=== PATIENT | female | born 1945 | race Two or more races ===

== ENCOUNTER 2017-03-21 22:04 | Emergency (ER) | payer MEDICAID, MEDICARE ==
[~2017-03-21] VITALS: Ht 165.1 cm; Wt 63.5 kg
[~2017-03-21 22:04] MED LIST: HYDR-2598; LEVO50TA7; METH2.5T3; NIAC500T58; PREDNISONE TAB 5MG
[2017-03-21 23:05] LABS: Basophils # (auto) 0.1 uL; Basophils % (auto) 1.3 % (0.0-2.0); Eosinophils # (auto) 0.1 uL; Eosinophils % (auto) 1.2 % (0.0-7.0); Hematocrit 41.1 % (36.0-46.0); Hemoglobin 13.6 g/dL (12.2-16.2); Lymphocytes % (auto) 22.1 % (10.0-50.0); Mean Corpuscular Hemoglobin 30.3 pg (28.0-32.0); Mean Corpuscular Volume 91.6 fL (80.0-100.0); Mean Platelet Volume 8.4 fL (6.9-10.8); Monocytes # (auto) 0.3 uL; Monocytes % (auto) 6.5 % (0.0-12.0); Neutrophils # (auto) 3.1 uL; Neutrophils % (auto) 68.9 % (37.0-80.0); Nucleated Red Blood Cells % 0.1 %; Platelet Count (auto) 160 10^3/uL (140-450); Red Cell Distribution Width 14.9 % (11.8-14.3); White Blood Cell 4.5 10^3/uL (4.4-10.8)
[2017-03-21 23:27] LABS: INR 0.98 (0.9-1.15); Partial Thromboplastin Time 26.6 sec (22.64-33.71); Prothrombin Time 10.7 sec (9.37-12.3)
[2017-03-21 23:29] LABS: Albumin 2.8 g/dL (3.4-5.0); Alkaline Phosphatase 209 U/L (45-117); Anion Gap 9 (5-15); Aspartate Aminotransferase 49 U/L (15-37); BUN/Creatinine Ratio 12.4; Bilirubin, Total 0.8 mg/dL (0.2-1.0); Blood Urea Nitrogen 11 mg/dL (7-18); Calcium 8.4 mg/dL (8.5-10.1); Carbon Dioxide 24 mmol/L (21-32); Chloride 106 mmol/L (98-107); GFR African American 80 mL/min; GFR Non-African American 66 mL/min; Glucose 125 mg/dL (74-106); Magnesium 2.2 mg/dL (1.6-2.6); Sodium 139 mmol/L (136-145); Total Protein 7.8 g/dL (6.4-8.2)
[2017-03-21 23:32] LABS: B-Type Natriuretic Peptide 46.22 pg/mL (0-100)
[2017-03-21 23:38] LABS: Temperature: 24.1 C (20.0-25.0)
[2017-03-22] MEDS ORDERED: IBUPROFEN 400 MG TAB PO ONE (00:45)
[2017-03-22] MEDS ORDERED: MECLIZINE HCL 25 MG TAB PO ONE (00:45)
[2017-03-22] MEDS ORDERED: SODIUM CHLORIDE 0.9% 1,000 ML IV ONE ×2 (02:15)
[2017-03-22 05:19] VITALS: BP 94/45
== END 2017-03-22 06:00 | disposition home or self-care (01) ==
LOC: EDBD 22:04 → ER 22:08
DX: T40.7X1A Poisoning by cannabis (derivatives), accidental (unintentional), initial encounter (principal); R41.82 Altered mental status, unspecified; G92 Toxic encephalopathy; M19.90 Unspecified osteoarthritis, unspecified site; Y92.89 Other specified places as the place of occurrence of the external cause
CPT/HCPCS: 36415; 71010; 80053; 83735; 83880; 84443; 84484; 85025; 85379; 85610; 85730; 93005; 96360; 96361; 99285; J7030; J8597

== ENCOUNTER 2018-09-22 19:09 | Inpatient (IN) | payer OTHER, MEDICAID ==
[~2018-09-22] VITALS: Ht 162.6 cm; Wt 100.1 kg
[2018-09-22] MEDS ORDERED: ONDANSETRON HCL 4 MG/2 ML VIAL IV ONE (20:45)
[2018-09-22] MEDS ORDERED: KETOROLAC TROMETH 30 MG/ML 1ML VIAL IV ONE (21:00)
[2018-09-22] MEDS ORDERED: ACETAMINOPHEN 325 MG TAB PO ONE (21:30)
[2018-09-22 21:38] LABS: Hemoglobin 10.5 g/dL (12.2-16.2); Mean Corpuscular Hemoglobin 32.8 pg (28.0-32.0); Mean Corpuscular Hgb Conc. 32.9 g/dL (32.0-36.0); Mean Corpuscular Volume 99.8 fL (80.0-100.0); Platelet Count (auto) 127 10^3/uL (140-450); Red Blood Cells 3.21 10^6/uL (4.0-5.20); Red Cell Distribution Width 19.3 % (11.8-14.3)
[2018-09-22 21:41] LABS: Potassium 3.9 mmol/L (3.5-5.1)
[2018-09-22 21:44] LABS: Band Neutrophils % (manual) 0; Basophils % (manual) 0 (0.0-2.0); Blast Cells 0; Metamyelocytes % 0; Myelocytes % 0; Promyelocytes % 0; Reactive Lymphocytes 0
[2018-09-22 21:50] LABS: Albumin 2.3 g/dL (3.4-5.0); Bilirubin, Total 6.8 mg/dL (0.2-1.0); Calcium 8.9 mg/dL (8.5-10.1); Total Protein 7.4 g/dL (6.4-8.2)
[2018-09-22 22:04] LABS: Amylase 74 U/L (25-115); Lipase 273 U/L (73-393)
[2018-09-22 23:02] LABS: Eosinophils % (manual) 1 (0-7); Lymphocytes % (manual) 6 (10.0-50.0); Monocytes % (manual) 7 (0-12)
[2018-09-22] MEDS ORDERED: SODIUM CHLORIDE 0.9% 1,000 ML IV ONE (23:30)
[2018-09-23] VITALS (47 sets, daily range): BP systolic 84–138; BP diastolic 31–93
[2018-09-23] MEDS ORDERED: LEVOFLOXACIN 750MG 150 ML IV ONE (00:15)
[2018-09-23] MEDS ORDERED: metroNIDAZOLE 500MG/100ML 100 ML IV ONE (00:15)
[2018-09-23] MEDS ORDERED: SODIUM CHLORIDE 0.9% 1,000 ML IV ONE (01:15)
[2018-09-23] MEDS: NOREPINEPHRINE 8 MG/250ML KIT 250 ML IV SCH (02:53)
[2018-09-23] MEDS ORDERED: ONDANSETRON HCL 4 MG/2 ML VIAL IV ONE (03:45)
[2018-09-23 04:38] LABS: Urine Bacteria FEW /hpf (None Seen); Urine Blood Negative /uL (Negative); Urine Hyaline Cast FEW /lpf (0 - 2); Urine Mucus FEW (None Seen); Urine Specific Gravity 1.012 (1.001-1.035); Urine WBC 2 /hpf (0 - 5)
[2018-09-23] MEDS ORDERED: ACETAMINOPHEN 500 MG TAB PO PRN (04:45)
[2018-09-23] MEDS ORDERED: ALBUMIN 25% 100 ML IV ONE ×3 (04:45→16:45)
[2018-09-23 04:51] LABS: Basophils # (auto) 0.1 uL; Basophils % (auto) 0.6 % (0.0-2.0); Eosinophils # (auto) 0.1 uL; Eosinophils % (auto) 0.9 % (0.0-7.0); Hematocrit 26.9 % (36.0-46.0); Hemoglobin 9.2 g/dL (12.2-16.2); Lymphocytes # (auto) 1.4 uL; Mean Corpuscular Hgb Conc. 34.1 g/dL (32.0-36.0); Mean Corpuscular Volume 99.6 fL (80.0-100.0); Monocytes # (auto) 1.4 uL; Monocytes % (auto) 13.6 % (0.0-12.0); Neutrophils # (auto) 7.6 uL; Neutrophils % (auto) 71.9 % (37.0-80.0); Platelet Count (auto) 116 10^3/uL (140-450); Red Cell Distribution Width 18.7 % (11.8-14.3); White Blood Cell 10.6 10^3/uL (4.4-10.8)
[2018-09-23 05:02] LABS: BUN/Creatinine Ratio 12.3; Calcium 7.9 mg/dL (8.5-10.1); Potassium 4.3 mmol/L (3.5-5.1)
[2018-09-23] MEDS: LEVOTHYROXINE SODIUM 50 MCG TAB PO SCH (07:04)
[2018-09-23] MEDS: ONDANSETRON HCL 4 MG/2 ML VIAL IV PRN ×2 (08:29→14:21)
--- NOTE | 2018-09-23 09:10 | NUR ---
Pt being admitted to ICU ANDERSONZACH JAMA admitted to ICU via gurney on athletic monitor, and portable 02. Patient transfered to bed, connected to ICU monitoring and oxygen, and weighed by bedscale. Patient oriented to Phil brandt RN, unit, room, bed, and unit policies regarding patient care and visiting hours. All questions and concerns addressed, patient verbalized understanding. NOTE: PATIENT AWAKE, A/OX4, DENIES ANY PAIN JUST "STOMACH PRESSURE". NO SIGNS/SYMPTOMS OF BLEEDING AT THIS TIME. CALL LIGHT IN REACH. LEVOPHED AT 10 MCG/MIN.
[2018-09-23] MEDS ORDERED: HEPARIN SODIUM (PORCINE) 5000 UNITS/ML 1ML VIAL IV ONE (09:45)
[2018-09-23 09:56] LABS: Basophils # (auto) 0.1 uL; Basophils % (auto) 0.5 % (0.0-2.0); Eosinophils # (auto) 0.1 uL; Hematocrit 27.6 % (36.0-46.0); Hemoglobin 9.1 g/dL (12.2-16.2); Lymphocytes # (auto) 1.5 uL; Lymphocytes % (auto) 14.8 % (10.0-50.0); Mean Corpuscular Hemoglobin 33.1 pg (28.0-32.0); Mean Corpuscular Volume 100.3 fL (80.0-100.0); Monocytes # (auto) 1.6 uL; Neutrophils # (auto) 7.1 uL; Neutrophils % (auto) 68.7 % (37.0-80.0); Nucleated Red Blood Cells % 0.2 %; Platelet Count (auto) 119 10^3/uL (140-450); Red Blood Cells 2.75 10^6/uL (4.0-5.20); Red Cell Distribution Width 18.7 % (11.8-14.3); White Blood Cell 10.3 10^3/uL (4.4-10.8)
[2018-09-23] MEDS ORDERED: predniSONE 5 MG TAB PO SCH (10:00)
[2018-09-23] MEDS ORDERED: FUROSEMIDE 20 MG/2 ML VIAL IV SCH ×2 (10:00→22:00)
--- NOTE | 2018-09-23 10:02 | NUR ---
PAGED DR CHONG, REGARDING VERIFICATION OF HEPARIN GTT AND ASA PO AND FOR POSSIBLE ORDER FOR ALBUMIN/POTASSIUM DUE TO LASIX AND PATIENT ON LEVOPHED.
[2018-09-23 10:03] LABS: INR 1.66 (0.9-1.15); Partial Thromboplastin Time 33.2 sec (23.78-33.04); Prothrombin Time 17.3 sec (9.27-12.13)
--- NOTE | 2018-09-23 11:22 | NUR ---
DR LAM CALLED BACK, OK TO START HEPARIN GTT/BOLUS AND OK FOR ASA.
[2018-09-23] MEDS: HEPARIN DRIP/D5W 100UNITS/ML 250 ML IV SCH (11:43)
[2018-09-23] MEDS: ASPirin 81 mg TAB PO SCH (11:43)
--- NOTE | 2018-09-23 11:56 | NUR ---
SPOKE WITH DR CHONG, VERIFIED 2000 UNIT HEPARIN BOLUS BECAUSE ORDER STATED TO GIVE 2000 UNITS AND ALSO GIVE PER PT WT PER RX PROTOCOL. DR ARMIJO RN VERIFIED HEPARIN WITH GI DRS. RN ASSESSED PATIENT FOR SIGNS OF ACTIVE BLEEDING AGAIN PRIOR TO ADMINISTERING HEPARIN BOLUS AND GTT. PATIENT TOLERATING WELL SO FAR. GI DR AT BEDSIDE PRIOR TO ADMINISTERING.
[2018-09-23] MEDS ORDERED: OCTREOTIDE ACETATE 100 MCG in SODIUM CHL 0.9% 50 ML IV ONE (14:00)
--- NOTE | 2018-09-23 14:29 | NUR ---
PAGED DR CHONG REGARDING NO OUTPUT FROM LASIX
--- NOTE | 2018-09-23 15:25 | NUR ---
SPOKE WITH DR CHONG, AWARE PATIENT NAUSEAS AND BEEN GETTING ZOFRAN Q4H WITH 50ML COFFEE GROUND EMESIS, AWARE OF INCREASING ABDOMINAL "PRESSURE", DR AWARE NO URINE OUTPUT SINCE LASIX GIVEN, DR AWARE LEVOPHED ON AT 10MCG/MIN SINCE DR STATED TO START VASOPRESSIN GTT AND GIVE 2MG IV BUMEX IF BP OK IN 2 HRS. RN RECOMMENDED ALBUMIN AND NO ORDER RECEIVED. DR STATED TO ASK DR CAVAZOS FOR ALBUMIN/IVF. DR CAVAZOS NOT IN YET TODAY, DR CAVAZOS PAGED.
[2018-09-23] MEDS: OCTREOTIDE ACETATE 500 MCG in SODIUM CHL 0.9% 99 ML IV SCH (15:26)
--- NOTE | 2018-09-23 15:57 | NUR ---
SPOKE WITH YOANA DILLONAR REPORT GIVEN TO , NO ORDER FOR ALBUMIN OBTAINED, NEW ORDER FOR PICC LINE AND NEPHROLOGY CONSULT.
[2018-09-23] MEDS ORDERED: DOPamine 1600MCG/ML D5W 250 ML IV ONE (16:38)
--- NOTE | 2018-09-23 16:41 | NUR ---
PICC LINE JAKY WALLACE AT BEDSIDE, CONSENT SIGNED BY DTR PER PT REQUEST. SPOKE WITH DR SINGER NEW ORDER OBTAINED FOR URINE SODIUM/CREATININE, DOPAMINE GTT AT 2MCG/KG/MIN , AND ALBUMIN 25% 100 ML IV ONCE. FAMILY STEPPED OUT FOR BEDSIDE PROCEDURE. Addendum: 09/23/18 at 1835 by Phil Herndon RN DR SINGER ALSO STATED TO HOLD BUMEX ORDERED PER DR CHONG
[2018-09-23] MEDS: DOPamine 1600MCG/ML D5W 250 ML IV SCH (16:44)
[2018-09-23] MEDS: VASOPRESSIN 50 UNITS in D5W 5% 247.5 ML IV SCH (16:45)
[2018-09-23] MEDS ORDERED: BUMETANIDE (0.25MG/ML) 4 ML VIAL IV ONE (17:30)
[2018-09-23 18:04] LABS: Creatinine, Urine 183 mg/dL (30.0-125.0); Sodium Urine 33 mmol/L (40-220)
--- NOTE | 2018-09-23 18:21 | NUR ---
PICC line placement Patient educated on need for PICC line placement. All risks and benefits explained and all questions and concerns addressed prior to procedure. Noted past medical history and allergies with no contraindications. INR and Plt counts within acceptable range. 5fr PICC line inserted via right basilic vein using [employer] US and Tip Location System. Sterile technique with maximum barrier precautions utilized. Blood return obtained from each of 3 lumens and each flushed easily with NS using proper technique. PICC secured with Stat-lock; biodisc and occlusive dressing applied. Stat portable chest x-ray obtained for PICC tip placement. *Baseline Arm Circumference 30cm. PICC lot [id number]. Internal length 42cm External length 0cm
[2018-09-23] MEDS ORDERED: LIDOCAINE 1% (LOCAL ANESTH.) PF 5ml SDV ID ONE (18:30)
[2018-09-23 18:38] LABS: INR 1.75 (0.9-1.15); Prothrombin Time 18.1 sec (9.27-12.13)
--- NOTE | 2018-09-23 18:45 | NUR ---
PTT NOT BACK UNTIL THIS TIME AND DECREASED HEPARIN GTT TO 600 UNITS/HR
--- NOTE | 2018-09-23 18:54 | NUR ---
PICC LINE DSG CHANGED USING ASEPTIC TECHNIQUE DUE TO BLOODY SATURATION AND LEAKING OF BLOOD FROM DSG SITE. PATIENT TOLERATED WELL. CXR COMPLETED.
--- NOTE | 2018-09-23 19:15 | NUR ---
OPENING NOTE REPORT RECEIVED FROM RN. PATIENT IS AWAKE AND ALERT IN BED. PATIENT STATES NO CONCERNS OR QUESTIONS AT THIS TIME. BED IN LOWEST POSITION AND CALL LIGHT WITHIN REACH.
--- NOTE | 2018-09-23 20:00 | NUR ---
PATIENTS FRIEND AND GRANDSON AT BEDSIDE
--- NOTE | 2018-09-23 20:30 | NUR ---
LEVOPHED TITRATED DOWN TO 9
--- NOTE | 2018-09-23 20:40 | NUR ---
DR. Avila DINH AT BEDSIDE SPEAKING TO FAMILY (DAUGHTER AND GRANDSON). ORDERS RECEIVED.
--- NOTE | 2018-09-23 20:44 | NUR ---
HEMO CONSULT REQ BY DR. MOSER CALLED [employer] AND S/W TOVA, DR. PORRAS IS CARRIAGE DOGGER
--- NOTE | 2018-09-23 20:46 | NUR ---
OK to use PICC line Xray completed. OK to use PICC line.
--- NOTE | 2018-09-23 21:15 | NUR ---
NATALIIA BROOKE AT BEDSIDE
[2018-09-23] MEDS: LEVOFLOXACIN 250MG 50 ML IV SCH (21:22)
[2018-09-23 21:34] LABS: Albumin 2.7 g/dL (3.4-5.0); Calcium 7.8 mg/dL (8.5-10.1); Magnesium 1.9 mg/dL (1.6-2.6); Potassium 4.8 mmol/L (3.5-5.1)
--- NOTE | 2018-09-23 21:37 | NUR ---
LEVOPHED TITRATED DOWN TO 8
[2018-09-23 21:39] LABS: Basophils # (auto) 0.1 uL; Basophils % (auto) 0.8 % (0.0-2.0); Bilirubin, Total 10.8 mg/dL (0.2-1.0); Eosinophils # (auto) 0.2 uL; Eosinophils % (auto) 2.1 % (0.0-7.0); Hematocrit 26.4 % (36.0-46.0); Hemoglobin 8.6 g/dL (12.2-16.2); Lymphocytes # (auto) 2.1 uL; Lymphocytes % (auto) 17.4 % (10.0-50.0); Mean Corpuscular Hemoglobin 32.4 pg (28.0-32.0); Mean Corpuscular Hgb Conc. 32.6 g/dL (32.0-36.0); Mean Corpuscular Volume 99.6 fL (80.0-100.0); Monocytes # (auto) 1.5 uL; Monocytes % (auto) 12.3 % (0.0-12.0); Neutrophils % (auto) 67.4 % (37.0-80.0); Nucleated Red Blood Cells % 0.3 %; Platelet Count (auto) 129 10^3/uL (140-450); Red Blood Cells 2.66 10^6/uL (4.0-5.20); Red Cell Distribution Width 18.7 % (11.8-14.3); Total Protein 7.1 g/dL (6.4-8.2); White Blood Cell 11.9 10^3/uL (4.4-10.8)
[2018-09-23] MEDS: ATORVASTATIN 20 MG TAB PO SCH (22:00)
[2018-09-23] MEDS: PANTOPRAZOLE 40 MG/10 ML VIAL IV SCH (22:27)
[2018-09-23] MEDS: SODIUM CHLOR 0.9% PF (SALINE LOCK) 10ML VIAL/SYR IV SCH (22:28)
[2018-09-23] MEDS: metroNIDAZOLE 500MG/100ML 100 ML IV SCH (22:29)
[2018-09-24] VITALS (89 sets, daily range): BP systolic 89–116; BP diastolic 34–53
[2018-09-24 01:03] LABS: INR 1.88 (0.9-1.15); Partial Thromboplastin Time 48.4 sec (23.78-33.04); Prothrombin Time 19.4 sec (9.27-12.13)
[2018-09-24] MEDS: OCTREOTIDE ACETATE 500 MCG in SODIUM CHL 0.9% 99 ML IV SCH ×3 (01:21→22:29)
[2018-09-24] MEDS: NOREPINEPHRINE 8 MG/250ML KIT 250 ML IV SCH (05:34)
[2018-09-24] MEDS: metroNIDAZOLE 500MG/100ML 100 ML IV SCH ×3 (05:42→22:32)
[2018-09-24 06:48] LABS: Basophils # (auto) 0.1 uL; Eosinophils # (auto) 0.3 uL; Hemoglobin 7.9 g/dL (12.2-16.2); Monocytes # (auto) 1.2 uL; Nucleated Red Blood Cells % 0.2 %; Red Blood Cells 2.37 10^6/uL (4.0-5.20)
[2018-09-24 06:52] LABS: Eosinophils % (auto) 3.1 % (0.0-7.0); Hematocrit 23.6 % (36.0-46.0); Lymphocytes # (auto) 1.6 uL; Lymphocytes % (auto) 16.2 % (10.0-50.0); Mean Corpuscular Hemoglobin 33.2 pg (28.0-32.0); Mean Corpuscular Hgb Conc. 33.3 g/dL (32.0-36.0); Mean Corpuscular Volume 99.8 fL (80.0-100.0); Monocytes % (auto) 11.8 % (0.0-12.0); Neutrophils # (auto) 6.8 uL; Neutrophils % (auto) 67.9 % (37.0-80.0); Platelet Count (auto) 107 10^3/uL (140-450); Red Cell Distribution Width 18.4 % (11.8-14.3)
[2018-09-24 07:00] LABS: Albumin 2.5 g/dL (3.4-5.0); BUN/Creatinine Ratio 14.3; Bilirubin, Direct 3.9 mg/dL (0-0.2); Calcium 7.5 mg/dL (8.5-10.1); Magnesium 1.8 mg/dL (1.6-2.6); Potassium 4.8 mmol/L (3.5-5.1)
[2018-09-24] MEDS: LEVOTHYROXINE SODIUM 50 MCG TAB PO SCH (07:03)
[2018-09-24 07:06] LABS: Bilirubin, Total 9.7 mg/dL (0.2-1.0); Total Protein 6.4 g/dL (6.4-8.2)
--- NOTE | 2018-09-24 07:55 | NUR ---
AM LABS AM labs released. Hgb 7.9 There is a standing order from Dr. Martinez if HGB less than 8.0 transfuse one(1) unit of pRBC. Informed patient and patient agrees to transfusion but would like to wait for daughter to sign consent; awaiting for patients daughter.
[2018-09-24] MEDS: PANTOPRAZOLE 40 MG/10 ML VIAL IV SCH ×2 (09:37→22:31)
[2018-09-24] MEDS: LEVOFLOXACIN 250MG 50 ML IV SCH (09:38)
[2018-09-24] MEDS: SODIUM CHLOR 0.9% PF (SALINE LOCK) 10ML VIAL/SYR IV SCH ×2 (09:39→22:32)
[2018-09-24] MEDS: ASPirin 81 mg TAB PO SCH (09:39)
--- NOTE | 2018-09-24 09:40 | NUR ---
MD Dr. Maldonado at bedside updated on patient condition with new orders to increase Vasopressin to 0.04units and to titrate Levophed gtt until its off. MD spoke to patient regarding plan of care and questions/concerns answered by MD.
[2018-09-24] MEDS: FUROSEMIDE 20 MG/2 ML VIAL IV SCH ×2 (10:00→22:32)
--- NOTE | 2018-09-24 11:00 | NUR ---
CONSENT Patients daughter Irene signed blood consent per patient request.
--- NOTE | 2018-09-24 11:50 | NUR ---
WOUND CARE NURSE Wound care nurse Gloria at bedside to assess patients skin. Patient tolerated well.
--- NOTE | 2018-09-24 11:55 | NUR ---
WOUND CARE NOTE: IN TO SEE PATIENT AT THIS TIME PER WOUND CARE CONSULT REQUEST. PATIENT WAS ADMITTED TO [facility] WITH DIAGNOSIS OF LIVER CIRRHOSIS, ASCITES. CURRENT ARABELLA SCORE IS 15. PATIENT ON MULTIPLE VASOPRESSORS TO MAINTAIN LOW B/P. SHE IS AWAKE, ALERT, ORIENTED X 4, IN NO STATED PAIN AT THIS TIME. PATIENT IS OBSERVED TO BE ABLE TO TURN/REPOSITION SELF WITH MINIMAL ASSISTANCE. SKIN IS INTACT, BLANCHABLE. SHE APPEARS JAUNDICED. NO OPEN/DRAINING WOUNDS NOTED. EXTREMITIES HAVE GOOD CAPILLARY REFILL, NO AREAS WITH DUSKY/CYANOTIC SKIN NOTED. RECOMMEND: FREQUENT TURN SCHEDULE Q 2 HOURS, PRN CONDITION PERMITS, WITH PRESSURE REDISTRIBUTION USING PILLOWS/WEDGES, BID/PRN APPLICATION WITH MOISTURE BARRIER CREAM PREVENTATIVE, SKIN/WOUND CARE PLAN (IMPLEMENTED), CONTINUED MONITORING BY WOUND CARE TEAM.
[2018-09-24 12:39] LABS: INR 1.93 (0.9-1.15); Partial Thromboplastin Time 67.8 sec (23.78-33.04); Prothrombin Time 19.9 sec (9.27-12.13)
--- NOTE | 2018-09-24 13:20 | NUR ---
MD Dr. Thao at bedside updated on patient condition with no new orders at this time. MD spoke to patient regarding plan of care and questions/concerns answered by MD. states " patient does not need endoscopy at this time for there is no active bleeding if Dr. Titus insist on having one done I will need cardiac clearance and it will be done under anesthesia."
--- NOTE | 2018-09-24 14:38 | NUR ---
TRANSFUSION Started transfusion for HGB of 7.9 per MD orders.
[2018-09-24] MEDS: HEPARIN DRIP/D5W 100UNITS/ML 250 ML IV SCH (16:41)
--- NOTE | 2018-09-24 16:45 | NUR ---
MD Dr. Titus at bedside updated on patient condition with no new orders at this time. MD spoke to patient and patient family regarding plan of care. Questions/concerns answered by MD. MD spoke to patient/patient family about poor prognosis which then lead to DNR status and hospice. Patient and patient family to discuss.
--- NOTE | 2018-09-24 17:00 | NUR ---
BLOOD TRANSFUSION One(1) unit of pRBC infused at this time.
[2018-09-24 18:39] LABS: % Iron Saturation 94.1 % (15-50)
--- NOTE | 2018-09-24 19:10 | NUR ---
OPENING NOTE RECEIVED REPORT AND ASSUMED CARE FROM SARBJIT STARKEY. PATIENT IS AWAKE IN BED. FRIENDS AT BEDSIDE. PATIENT HAS NO QUESTIONS OR CONCERNS AT THIS TIME. BED IN LOWEST POSITION. CALL LIGHT WITHIN REACH.
--- NOTE | 2018-09-24 19:20 | NUR ---
DR. KAY AT BEDSIDE SPOKE WITH PATIENT AND LAB ORDERS RECEIVED
[2018-09-24 19:29] LABS: INR 1.95 (0.9-1.15); Prothrombin Time 20.1 sec (9.27-12.13)
[2018-09-24 20:02] LABS: Albumin 2.2 g/dL (3.4-5.0); BUN/Creatinine Ratio 15.4; Bilirubin, Direct 3.3 mg/dL (0-0.2); Calcium 7.1 mg/dL (8.5-10.1); Magnesium 1.8 mg/dL (1.6-2.6); Potassium 4.6 mmol/L (3.5-5.1)
[2018-09-24] MEDS: DOPamine 1600MCG/ML D5W 250 ML IV SCH (20:14)
[2018-09-24] MEDS: VASOPRESSIN 50 UNITS in D5W 5% 247.5 ML IV SCH (20:14)
[2018-09-24 20:27] LABS: Bilirubin, Total 8.5 mg/dL (0.2-1.0); Total Protein 6.1 g/dL (6.4-8.2)
[2018-09-24 20:30] LABS: Partial Thromboplastin Time 71.1 sec (23.78-33.04)
[2018-09-24 21:08] LABS: Basophils # (auto) 0.1 uL; Eosinophils # (auto) 0.2 uL
[2018-09-24 21:10] LABS: Basophils % (auto) 0.7 % (0.0-2.0); Hematocrit 23.4 % (36.0-46.0); Lymphocytes # (auto) 1.3 uL; Lymphocytes % (auto) 16.3 % (10.0-50.0); Mean Corpuscular Hemoglobin 33.1 pg (28.0-32.0); Mean Corpuscular Hgb Conc. 34.1 g/dL (32.0-36.0); Mean Corpuscular Volume 96.9 fL (80.0-100.0); Monocytes # (auto) 0.8 uL; Monocytes % (auto) 10.8 % (0.0-12.0); Neutrophils # (auto) 5.4 uL; Neutrophils % (auto) 69.2 % (37.0-80.0); Platelet Count (auto) 82 10^3/uL (140-450); Red Blood Cells 2.41 10^6/uL (4.0-5.20); Red Cell Distribution Width 19.9 % (11.8-14.3); White Blood Cell 7.8 10^3/uL (4.4-10.8)
[2018-09-24] MEDS: ATORVASTATIN 20 MG TAB PO SCH (22:33)
[2018-09-25] VITALS (81 sets, daily range): BP systolic 85–114; BP diastolic 33–63
[2018-09-25] MEDS: NOREPINEPHRINE 8 MG/250ML KIT 250 ML IV SCH (02:30)
--- NOTE | 2018-09-25 05:30 | NUR ---
[employer] DOWN TIME HARD COPY CHARTING FROM 2300 TO 0530. CHARTING COPIED TO [employer] WHEN IT RETURNED.
[2018-09-25] MEDS: OCTREOTIDE ACETATE 500 MCG in SODIUM CHL 0.9% 99 ML IV SCH (06:00)
[2018-09-25 06:07] LABS: Basophils # (auto) 0.1 uL; Eosinophils # (auto) 0.2 uL; Hemoglobin 8.1 g/dL (12.2-16.2); Neutrophils # (auto) 4.6 uL; Nucleated Red Blood Cells % 0.1 %
[2018-09-25 06:10] LABS: Basophils % (auto) 0.9 % (0.0-2.0); Hematocrit 23.7 % (36.0-46.0); Lymphocytes # (auto) 1.3 uL; Lymphocytes % (auto) 18.3 % (10.0-50.0); Mean Corpuscular Hemoglobin 32.9 pg (28.0-32.0); Mean Corpuscular Hgb Conc. 34.3 g/dL (32.0-36.0); Mean Corpuscular Volume 95.9 fL (80.0-100.0); Monocytes # (auto) 0.9 uL; Monocytes % (auto) 12.4 % (0.0-12.0); Neutrophils % (auto) 65.4 % (37.0-80.0); Platelet Count (auto) 81 10^3/uL (140-450); Red Blood Cells 2.47 10^6/uL (4.0-5.20)
[2018-09-25 06:13] LABS: Potassium 4.2 mmol/L (3.5-5.1)
--- NOTE | 2018-09-25 06:22 | NUR ---
INCREASED VASOPRESSIN TO 0.05 DUE TO MAP LESS THAN 60
[2018-09-25 06:23] LABS: Albumin 2.3 g/dL (3.4-5.0); Magnesium 1.7 mg/dL (1.6-2.6)
[2018-09-25 06:26] LABS: INR 1.86 (0.9-1.15); Prothrombin Time 19.2 sec (9.27-12.13)
[2018-09-25 06:29] LABS: Bilirubin, Total 7.9 mg/dL (0.2-1.0); Calcium 7.9 mg/dL (8.5-10.1); Total Protein 6.4 g/dL (6.4-8.2)
[2018-09-25] MEDS: metroNIDAZOLE 500MG/100ML 100 ML IV SCH ×3 (06:29→22:00)
[2018-09-25] MEDS: LEVOTHYROXINE SODIUM 50 MCG TAB PO SCH (06:31)
[2018-09-25 06:38] LABS: Bilirubin, Direct 3.3 mg/dL (0-0.2)
--- NOTE | 2018-09-25 07:17 | NUR ---
CLOSING NOTE REPORT GIVEN AND CARE ENDORSED TO SARBJIT STARKEY
[2018-09-25 07:29] LABS: Red Cell Distribution Width 20.2 % (11.8-14.3)
[2018-09-25 07:46] LABS: Partial Thromboplastin Time 71.3 sec (23.78-33.04)
--- NOTE | 2018-09-25 07:48 | NUR ---
HEPARIN GTT Received PTT results of 71.30, PTT in therapeutic range, Heparin gtt to continue at current rate of 2200 UNITS =22 ml/hr. Will continue to monitor patient for any signs/symptoms of bleeding.
--- NOTE | 2018-09-25 09:00 | NUR ---
VASOPRESSIN GTT Vasopressin gtt decreased to 0.04 UNITS/MIN for a blood pressure of 110/48, will continue to titrate as tolerated by patient.
[2018-09-25] MEDS: MAGNESIUM SULFATE 1GM/100ML 100 ML IV SCH ×2 (09:52→10:52)
[2018-09-25] MEDS: LEVOFLOXACIN 250MG 50 ML IV SCH (09:52)
[2018-09-25] MEDS: PANTOPRAZOLE 40 MG/10 ML VIAL IV SCH ×2 (09:53→22:28)
[2018-09-25] MEDS: FUROSEMIDE 20 MG/2 ML VIAL IV SCH ×2 (09:53→22:38)
[2018-09-25] MEDS: ASPirin 81 mg TAB PO SCH (09:53)
[2018-09-25] MEDS: SODIUM CHLOR 0.9% PF (SALINE LOCK) 10ML VIAL/SYR IV SCH ×2 (10:00→22:00)
--- NOTE | 2018-09-25 11:00 | NUR ---
VASOPRESSIN GTT Vasopressin gtt decreased to 0.03 UNITS/MIN for a blood pressure of 106/48, will continue to titrate as tolerated by patient.
[2018-09-25 13:47] LABS: Ferritin 1525.9 ng/mL (10-322)
[2018-09-25 13:48] LABS: Folate (Folic Acid) 4.44 ng/mL (5.38-24)
--- NOTE | 2018-09-25 14:40 | NUR ---
GLASSWARE SELECTOR piping manager for [facility] at bedside, Jordana, spoke to patient and family and patient/patient family agreed to go on hospice. Jordana, residential case manager, states " will call Dr. Titus to inform him." Awaiting for Dr. Titus to call for new orders.
--- NOTE | 2018-09-25 15:00 | NUR ---
MD Muro called and spoke to this patient with new orders for the RN to input into system for hospice consult and plan on discharging tomorrow. Will continue to monitor patient closely.
--- NOTE | 2018-09-25 15:05 | NUR ---
SPECIAL EFFECTS ARTIST Received phone call from psychiatric social worker supervisor Jodi regarding Hospice nurse will be coming by to speak to family about signing on later today.
[2018-09-25] MEDS: VASOPRESSIN 50 UNITS in D5W 5% 247.5 ML IV SCH (15:45)
--- NOTE | 2018-09-25 17:15 | NUR ---
[facility] at bedside and speaking to patient and patients family regarding signing on to hospice.
--- NOTE | 2018-09-25 17:20 | NUR ---
SS consult regarding hospice. Met with pt and daughter, Irene, regarding hospice. Pt and daughter are in agreeance with hospice eval and are requesting [facility]. Provided pt and daughter with choice letter which was signed by daughter , with pt's permission. Airam at [facility] notified and requested medical information faxed to [facility]. Airam stated that a nurse would followup with pt and daughter either this evening or tomorrow morning.
[2018-09-25 18:40] LABS: Basophils # (auto) 0.1 uL; Hematocrit 23.6 % (36.0-46.0); Hemoglobin 7.7 g/dL (12.2-16.2); Lymphocytes # (auto) 1.2 uL; Mean Corpuscular Hgb Conc. 32.8 g/dL (32.0-36.0); Monocytes # (auto) 0.9 uL; Red Blood Cells 2.42 10^6/uL (4.0-5.20)
[2018-09-25 18:42] LABS: Eosinophils # (auto) 0.2 uL; Eosinophils % (auto) 2.3 % (0.0-7.0); Lymphocytes % (auto) 18.2 % (10.0-50.0); Mean Corpuscular Hemoglobin 31.8 pg (28.0-32.0); Mean Corpuscular Volume 97.1 fL (80.0-100.0); Monocytes % (auto) 13.7 % (0.0-12.0); Neutrophils # (auto) 4.3 uL; Neutrophils % (auto) 64.8 % (37.0-80.0); Platelet Count (auto) 84 10^3/uL (140-450); Red Cell Distribution Width 19.8 % (11.8-14.3); White Blood Cell 6.7 10^3/uL (4.4-10.8)
[2018-09-25 18:50] LABS: Potassium 4.1 mmol/L (3.5-5.1)
[2018-09-25 18:53] LABS: Albumin 2.1 g/dL (3.4-5.0); Calcium 7.4 mg/dL (8.5-10.1); Magnesium 2.2 mg/dL (1.6-2.6)
[2018-09-25 18:56] LABS: BUN/Creatinine Ratio 18.8
[2018-09-25 18:59] LABS: Total Protein 6.3 g/dL (6.4-8.2)
--- NOTE | 2018-09-25 19:10 | NUR ---
Opening Shift Note Assumed care of patient, awake and alert. No S/S of distress/SOB or pain. Instructed on POC and to call for assist PRN, will continue to monitor for changes.
[2018-09-25] MEDS: HEPARIN DRIP/D5W 100UNITS/ML 250 ML IV SCH (21:51)
[2018-09-25] MEDS: DOPamine 1600MCG/ML D5W 250 ML IV SCH (21:52)
[2018-09-25] MEDS: ATORVASTATIN 20 MG TAB PO SCH (22:29)
[2018-09-26] VITALS (67 sets, daily range): BP systolic 82–106; BP diastolic 25–74
[2018-09-26] MEDS: HEPARIN DRIP/D5W 100UNITS/ML 250 ML IV SCH (00:14)
--- NOTE | 2018-09-26 01:15 | NUR ---
REPORTS DISCOMFORT TO LEFT HIP AREA. PATIENT DEFERRED PAIN MEDICATION AT THIS TIME. PLACED WARM PACK TO HIP AREA. REINFORCED THAT IF WARM PACK DOES NOT HELP NOR PAIN DISRUPTS HER SLEEP, WE CAN TRY TYLENOL PRN. PATIENT AGREEABLE.
--- NOTE | 2018-09-26 01:15 | NUR ---
PATIENT REQUESTING SCDs TO BE REMOVED
--- NOTE | 2018-09-26 01:41 | NUR ---
H/H NOTED TO BE 7.7: STANDING ORDER TO TRANSFUSE WHEN HGB < 8. PATIENT TO DISCHARGE TO HOSPICE. WILL REASSESS HGB IN AM AND CONFER WITH PHYSICIAN IF HE STILL WANTS STANDING ORDER TO TRANSFUSE
[2018-09-26] MEDS: NOREPINEPHRINE 8 MG/250ML KIT 250 ML IV SCH (02:30)
--- NOTE | 2018-09-26 02:44 | NUR ---
STILL REPORTS LEFT HIP PAIN BUT DEFERRING MEDICATIONS AT THIS TIME, REPOSITIONED, AND PLACED ROLLED BLANKET FOR LUMBAR SUPPORT
[2018-09-26 03:46] LABS: Eosinophils # (auto) 0.2 uL; Lymphocytes # (auto) 1.5 uL; Neutrophils # (auto) 4.2 uL
[2018-09-26 03:48] LABS: Basophils # (auto) 0 uL; Basophils % (auto) 0.7 % (0.0-2.0); Hematocrit 22.8 % (36.0-46.0); Hemoglobin 7.8 g/dL (12.2-16.2); Lymphocytes % (auto) 21.2 % (10.0-50.0); Mean Corpuscular Hemoglobin 33.1 pg (28.0-32.0); Mean Corpuscular Hgb Conc. 34.1 g/dL (32.0-36.0); Monocytes % (auto) 14.4 % (0.0-12.0); Neutrophils % (auto) 60.7 % (37.0-80.0); Nucleated Red Blood Cells % 0.1 %; Platelet Count (auto) 77 10^3/uL (140-450); Red Blood Cells 2.35 10^6/uL (4.0-5.20); White Blood Cell 6.9 10^3/uL (4.4-10.8)
[2018-09-26 03:56] LABS: Potassium 4.1 mmol/L (3.5-5.1)
[2018-09-26 03:59] LABS: Calcium 7.6 mg/dL (8.5-10.1); Magnesium 2.2 mg/dL (1.6-2.6)
[2018-09-26 04:02] LABS: BUN/Creatinine Ratio 19.9
[2018-09-26 04:03] LABS: Red Cell Distribution Width 20.2 % (11.8-14.3)
[2018-09-26 04:05] LABS: Bilirubin, Total 6.4 mg/dL (0.2-1.0); Total Protein 6.2 g/dL (6.4-8.2)
[2018-09-26 04:08] LABS: INR 1.93 (0.9-1.15); Prothrombin Time 19.9 sec (9.27-12.13)
[2018-09-26 04:14] LABS: Partial Thromboplastin Time 74.6 sec (23.78-33.04)
--- NOTE | 2018-09-26 04:17 | NUR ---
PTT 74.6 - NO CHANGE IN HEPARIN GTT
[2018-09-26 04:30] LABS: Bilirubin, Direct 2.8 mg/dL (0-0.2)
--- NOTE | 2018-09-26 05:22 | NUR ---
pt deferred bath pt asked to be bathed after the pain medication has kicked in so the patient is more comfortable. will check on patient and reasses readiness for bath
[2018-09-26] MEDS: metroNIDAZOLE 500MG/100ML 100 ML IV SCH ×2 (06:05→17:00)
[2018-09-26] MEDS: LEVOTHYROXINE SODIUM 50 MCG TAB PO SCH (07:13)
[2018-09-26] MEDS ORDERED: FURO40TA PO (09:01)
[2018-09-26] MEDS ORDERED: ASPI81CH43 PO (09:01)
[2018-09-26] MEDS ORDERED: METR500T PO (09:01)
[2018-09-26] MEDS ORDERED: LEVO500T21 PO (09:01)
[2018-09-26] MEDS ORDERED: PANT40T PO (09:01)
--- NOTE | 2018-09-26 09:03 | NUR ---
DNR STATUS AT THIS TIME MD, MYSELF AND PATIENT SIGNED DNR FORM TO CLARIFY PATIENT'S CODE STATUS. DR. Avila MOSER AT BEDSIDE TALKING WITH PATIENT. CONTINUE CARE.
[2018-09-26] MEDS: MIDODRINE HCL 10 MG TAB PO SCH ×3 (09:26→19:30)
[2018-09-26] MEDS: ASPirin 81 mg TAB PO SCH (10:00)
[2018-09-26] MEDS: FUROSEMIDE 20 MG/2 ML VIAL IV SCH (10:00)
[2018-09-26] MEDS: SODIUM CHLOR 0.9% PF (SALINE LOCK) 10ML VIAL/SYR IV SCH (10:00)
[2018-09-26] MEDS: PANTOPRAZOLE 40 MG/10 ML VIAL IV SCH (10:25)
--- NOTE | 2018-09-26 10:48 | NUR ---
BLOOD TRANSFUSION STARTED AT THIS TIME. CONSENT SIGNED. VERIFIED BLOOD WITH SUSTAINABLE DEVELOPMENT POLICY ANALYSTBAYRON. WILL CONTINUE TO MONITOR PATIENT AT BEDSIDE AT THIS TIME. CONTINUE CARE. SEE BLOOD TRANSFUSION FLOW SHEET.
--- NOTE | 2018-09-26 11:00 | NUR ---
DR. SINGER AT BEDSIDE: UPDATE MD UPDATED ON PT'S STATUS, LABS AND ABOUT PLAN FOR PATIENT TO GO HOME TODAY, DISCHARGE WITH HOSPICE. MD VERBALIZES UNDERSTANDING. NO NEW ORDERS GIVEN AT THIS TIME. CONTINUE CARE.
--- NOTE | 2018-09-26 12:05 | NUR ---
Dhaval RN from [facility], met and evaluated pt last evening. Pt has been accepted onto [facility] services. Medical equipment and medications ordered for delivery today. Dhaval has setup transport through [email or web address] ( [phone]) for between 4-5pm tonight. Pt and daughter informed and verbalized understanding as well as agreeance with the above d/c plan.
[2018-09-26] MEDS: VASOPRESSIN 50 UNITS in D5W 5% 247.5 ML IV SCH (15:45)
[2018-09-26] MEDS: DOPamine 1600MCG/ML D5W 250 ML IV SCH (16:45)
[2018-09-26] MEDS: LEVOFLOXACIN 250MG 50 ML IV SCH (17:11)
--- NOTE | 2018-09-26 19:12 | NUR ---
REPORT RECEIVED FROM JAKY MONTES
--- NOTE | 2018-09-26 19:17 | NUR ---
CALLED [facility] TO INQUIRE ABOUT DESKTOP ADMINISTRATOR TIME: PER [facility], SHE WILL CALL DRIVEWAY SEALER BACK WITH UPDATE
--- NOTE | 2018-09-26 19:48 | NUR ---
OPENING NOTE: A&OX4. PLEASANT AND COOPERATIVE. RECEIVED PATIENT ON RIGHT SIDE, REPOSITIONED TO SUPINE. NSR, HR 79. SBP 100s. LS CTA, DIMINISHED TO BASES. EVEN AND UNLABORED BREATHING ON 3L O2 VIA NC, SpO2 >95%. ABD SOFT. HYPOACTIVE BS. LAST DOCUMENTED BM 09/21. DENIES NAUSEA/VOMITING AT THIS TIME. BRIGHT PATENT AND INTACT, DRAINING AZUL URINE. SKIN GROSSLY INTACT, SEE SKIN AND WOUND FLOWSHEET FOR ASSESSMENT. 20 G PIV TO RIGHT FOREARM PATENT AND INTACT WITH BLOOD RETURN. REPORTS 4/10 ACHING PAIN TO LEFT HIP AREA, REPOSITIONED FOR COMFORT. REINFORCED POC. MAINTAINED PATIENT SAFETY: BED LOCKED AND IN THE LOWEST POSITION, CALL LIGHT WITHIN REACH, BED ALARM ON. ENCOURAGED PT TO VERBALIZE QUESTIONS AND CONCERNS. PT VERBALIZED UNDERSTANDING OF POC. WILL CONT CARE
--- NOTE | 2018-09-26 20:25 | NUR ---
DISCHARGE NOTE: REMOVED PIV, TELEMETRY MONITORING AND WRIST BANDS. PATIENT SIGNED DISCHARGE INSTRUCTIONS. DAUGHTERMENDY, AT BEDSIDE. TRANSFERRED PATIENT TO WHEEL CHAIR WITH [facility]AKY [facility]ARZA FOR TRANSPORT HOME. JAKY GARZA CALLED [facility] TO NOTIFY OF PATIENT'S DISCHARGE AND [facility] RN WILL BE AT PATIENT'S RESIDENCE WAITING FOR THE PATIENT. INFORMATION RELAYED TO PATIENT AND HER DAUGHTER, MENDY. PROVIDED MENDY, NATALIIA, WITH [facility] PHONE NUMBER . PATIENT AND DAUGHTER VERBALIZED UNDERSTANDING OF DISCHARGE INSTRUCTIONS, AND WITHOUT QUESTIONS AT THIS TIME. PATIENT LEFT WITH TRANSPORT IN STABLE CONDITION AND IN GOOD SPIRITS.
--- NOTE | 2018-09-26 20:25 | NUR ---
Regular Discharge. PT D/C'D HOME VIA W/C AND TRANSPORT ASSIST. ALL BELONGING AND DISCHARGE INSTRUCTIONS GIVEN TO PT. AND DAUGHTER. PT. TRANSFERRED TO W/C WITH ASSIST OF TWO.
== END 2018-09-26 20:25 | disposition hospice, home (50) | DRG 280 ==
LOC: EDBD 19:09 → EDUNIT# 19:09 → ER 19:27 → TELE 09-23 04:35 → ICU WEST 09-23 09:10
PROVIDERS: ADMIT Nurse Practitioner Family; ATTEND Internal Medicine
PROC: 02HV33Z Insertion of Infusion Device into Superior Vena Cava, Percutaneous Approach (ICD-10-PCS; 2018-09-23)
PROC: 30233N1 Transfusion of Nonautologous Red Blood Cells into Peripheral Vein, Percutaneous Approach (ICD-10-PCS; principal; 2018-09-24)
DX: I21.4 Non-ST elevation (NSTEMI) myocardial infarction (principal); I50.33 Acute on chronic diastolic (congestive) heart failure; R57.0 Cardiogenic shock; N17.0 Acute kidney failure with tubular necrosis; K57.91 Diverticulosis of intestine, part unspecified, without perforation or abscess with bleeding; R18.8 Other ascites; D68.9 Coagulation defect, unspecified; I13.0 Hypertensive heart and chronic kidney disease with heart failure and stage 1 through stage 4 chronic kidney disease, or unspecified chronic kidney disease; D62 Acute posthemorrhagic anemia; K74.60 Unspecified cirrhosis of liver; D69.59 Other secondary thrombocytopenia; I86.4 Gastric varices; E03.9 Hypothyroidism, unspecified; I70.0 Atherosclerosis of aorta; I27.20 Pulmonary hypertension, unspecified; K52.9 Noninfective gastroenteritis and colitis, unspecified; K72.90 Hepatic failure, unspecified without coma; N18.3 Chronic kidney disease, stage 3 (moderate); J44.9 Chronic obstructive pulmonary disease, unspecified; E66.9 Obesity, unspecified; M19.90 Unspecified osteoarthritis, unspecified site; Z79.899 Other long term (current) drug therapy; Z90.49 Acquired absence of other specified parts of digestive tract; Z68.37 Body mass index [BMI] 37.0-37.9, adult
CPT/HCPCS: 36415; 36569; 51702; 71045; 74176; 80048; 80053; 80076; 81001; 82150; 82570; 82728; 82746; 83010; 83540; 83550; 83615; 83690; 83735; 83880; 84300; 84484; 85007; 85025; 85027; 85045; 85610; 85730; 86850; 86900; 86901; 86920; 87040; 87081; 93005; 93306; 93970; 96361; 96365; 96366; 96367; 96375; 96376; C9113; G0378; J1885; J1956; J2405; J3490; J7060; P9047

== ENCOUNTER → 2018-09-22 | Outpatient (CLI) | payer OTHER, MEDICAID ==
[~2018-09-22] MED LIST changes: +FURO20TA3 PO; -HYDR-2598; -LEVO50TA7; +LEVO50TA7 PO; +MECL-87 PO; -METH2.5T3; -NIAC500T58; -PREDNISONE TAB 5MG; +SPIR25TA8 PO
[2018-09-22 13:10] LABS: Hemoglobin 9.9 g/dL (12.2-16.2); Mean Corpuscular Hemoglobin 32.7 pg (28.0-32.0); Mean Corpuscular Hgb Conc. 33.1 g/dL (32.0-36.0); Mean Corpuscular Volume 98.9 fL (80.0-100.0); Platelet Count (auto) 109 10^3/uL (140-450); Red Blood Cells 3.03 10^6/uL (4.0-5.20); Red Cell Distribution Width 19.2 % (11.8-14.3); White Blood Cell 5.7 10^3/uL (4.4-10.8)
[2018-09-22 13:28] LABS: Band Neutrophils % (manual) 0; Basophils % (manual) 0 (0.0-2.0); Blast Cells 0; Metamyelocytes % 0; Myelocytes % 0; Promyelocytes % 0; Reactive Lymphocytes 0
[2018-09-22 13:29] LABS: BUN/Creatinine Ratio 10.7; Calcium 8.8 mg/dL (8.5-10.1); Potassium 4.1 mmol/L (3.5-5.1)
[2018-09-22 14:02] LABS: Eosinophils % (manual) 3 (0-7); Lymphocytes % (manual) 28 (10.0-50.0); Monocytes % (manual) 8 (0-12)
== END | disposition home or self-care (01) ==
LOC: LAB 12:47
PROVIDERS: ATTEND Internal Medicine
DX: E78.2 Mixed hyperlipidemia (principal); E03.9 Hypothyroidism, unspecified
CPT/HCPCS: 36415; 80048; 85007; 85027